=== PATIENT | female | born 1960 | race Two or more races ===

== ENCOUNTER 2018-02-13 09:29 | Outpatient (CLI) | payer OTHER | END 2018-02-13 09:36 | disposition home or self-care (01) | LOC: LAB 09:29 | DX: D50.0 Iron deficiency anemia secondary to blood loss (chronic) (principal); I10 Essential (primary) hypertension; E87.8 Other disorders of electrolyte and fluid balance, not elsewhere classified; Z12.11 Encounter for screening for malignant neoplasm of colon; K62.5 Hemorrhage of anus and rectum; E78.2 Mixed hyperlipidemia; E03.8 Other specified hypothyroidism; N39.0 Urinary tract infection, site not specified; E55.9 Vitamin D deficiency, unspecified; M81.0 Age-related osteoporosis without current pathological fracture; R10.84 Generalized abdominal pain ==

== ENCOUNTER → 2018-02-25 | Outpatient (CLI) | payer OTHER | END | disposition home or self-care (01) | LOC: LAB 09:09 | DX: D50.0 Iron deficiency anemia secondary to blood loss (chronic) (principal); I10 Essential (primary) hypertension; E87.8 Other disorders of electrolyte and fluid balance, not elsewhere classified; Z12.11 Encounter for screening for malignant neoplasm of colon; K62.5 Hemorrhage of anus and rectum; E78.2 Mixed hyperlipidemia; E03.8 Other specified hypothyroidism; N39.0 Urinary tract infection, site not specified; E55.9 Vitamin D deficiency, unspecified; M81.0 Age-related osteoporosis without current pathological fracture; R10.84 Generalized abdominal pain ==

== ENCOUNTER → 2018-03-07 | Outpatient (CLI) | payer OTHER | END | disposition home or self-care (01) | LOC: MRI 11:14 | DX: M23.303 Other meniscus derangements, unspecified medial meniscus, right knee (principal); M15.0 Primary generalized (osteo)arthritis | CPT/HCPCS: 73721 ==

== ENCOUNTER 2018-03-18 09:43 | Outpatient (CLI) | payer OTHER | END 2018-03-18 09:52 | disposition home or self-care (01) | LOC: NUCLEAR 09:43 | DX: M81.0 Age-related osteoporosis without current pathological fracture (principal) ==

== ENCOUNTER 2018-09-04 08:25 | Outpatient (CLI) | payer OTHER | END 2018-09-04 09:03 | disposition home or self-care (01) | LOC: LAB 08:25 | DX: E03.8 Other specified hypothyroidism (principal); N95.8 Other specified menopausal and perimenopausal disorders; R97.8 Other abnormal tumor markers; N30.00 Acute cystitis without hematuria; D50.0 Iron deficiency anemia secondary to blood loss (chronic); E11.65 Type 2 diabetes mellitus with hyperglycemia; Z12.11 Encounter for screening for malignant neoplasm of colon; K62.5 Hemorrhage of anus and rectum; R10.84 Generalized abdominal pain; E78.2 Mixed hyperlipidemia; E03.0 Congenital hypothyroidism with diffuse goiter; E55.9 Vitamin D deficiency, unspecified; M81.0 Age-related osteoporosis without current pathological fracture; E11.29 Type 2 diabetes mellitus with other diabetic kidney complication ==

== ENCOUNTER 2018-10-10 07:47 | Outpatient (CLI) | payer OTHER | END 2018-10-10 07:50 | disposition home or self-care (01) | LOC: LAB 07:47 | DX: N13.0 Hydronephrosis with ureteropelvic junction obstruction (principal); M05.9 Rheumatoid arthritis with rheumatoid factor, unspecified ==

== ENCOUNTER 2018-12-02 15:58 | Inpatient (IN) | payer OTHER ==
[~2018-12-02] VITALS: Ht 152.4 cm; Wt 83.9 kg
[2018-12-24] MEDS ORDERED: VASOTEC20 M1 PO (11:37)
[2018-12-24] MEDS ORDERED: ASPIR 8181 MG PO (11:38)
[2018-12-24] MEDS ORDERED: NORVASC2.5 M1 PO (11:38)
[2018-12-24] MEDS ORDERED: PROTONIX40 M1 PO (11:38)
[2018-12-24] MEDS ORDERED: FISH OIL CONC1000 MG PO (11:38)
[2018-12-24] MEDS ORDERED: VITAMIN D310000 UNIT PO (11:39)
== END 2019-01-01 20:47 | DRG 470 ==
LOC: SURH 12-30 05:40 → O/R 12-30 05:40 → SURH 12-30 07:00
PROVIDERS: ADMIT Orthopaedic Surgery
PROC: 0SRD0J9 Replacement of Left Knee Joint with Synthetic Substitute, Cemented, Open Approach (ICD-10-PCS; principal; 2018-12-30 07:00)
DX: M17.12 Unilateral primary osteoarthritis, left knee (principal); D62 Acute posthemorrhagic anemia; I10 Essential (primary) hypertension

== ENCOUNTER → 2018-12-16 | Outpatient (CLI) | payer OTHER ==
[~2018-12-16] MED LIST: ASPIR 8181 MG PO; FISH OIL CONC1000 MG PO; NORVASC2.5 M1 PO; PROTONIX40 M1 PO; VASOTEC20 M1 PO; VITAMIN D310000 UNIT PO
== END | disposition home or self-care (01) ==
LOC: RAD 501 10:29
DX: M17.11 Unilateral primary osteoarthritis, right knee (principal)

== ENCOUNTER 2019-03-18 08:24 | Outpatient (CLI) | payer OTHER | END 2019-03-18 08:33 | disposition home or self-care (01) | LOC: LAB 08:24 | DX: E78.49 Other hyperlipidemia (principal) ==

== ENCOUNTER 2019-03-18 09:13 | Outpatient (CLI) | payer OTHER | END 2019-03-18 09:16 | disposition home or self-care (01) | LOC: RAD 09:13 | DX: M25.561 Pain in right knee (principal); M25.562 Pain in left knee ==

== ENCOUNTER 2019-07-13 07:22 | Outpatient (CLI) | payer OTHER | END 2019-07-13 07:28 | disposition home or self-care (01) | LOC: LAB 07:22 | DX: I10 Essential (primary) hypertension (principal); E78.49 Other hyperlipidemia ==

== ENCOUNTER → 2019-07-13 | Outpatient (CLI) | payer OTHER | END | disposition home or self-care (01) | LOC: RAD 07:46 | DX: M15.0 Primary generalized (osteo)arthritis (principal) ==

== ENCOUNTER 2019-10-08 10:15 | Emergency (ER) | payer OTHER ==
[~2019-10-08] VITALS: Ht 154.9 cm; Wt 79.4 kg
== END 2019-10-08 11:32 | disposition home or self-care (01) ==
LOC: ER 10:15
DX: M54.5 Low back pain (principal)

== ENCOUNTER 2019-12-04 08:10 | Outpatient (CLI) | payer OTHER | END 2019-12-04 08:19 | disposition home or self-care (01) | LOC: LAB 08:10 | DX: E78.49 Other hyperlipidemia (principal); R73.09 Other abnormal glucose; Z12.89 Encounter for screening for malignant neoplasm of other sites; I10 Essential (primary) hypertension ==

== ENCOUNTER 2019-12-04 08:43 | Outpatient (CLI) | payer OTHER | END 2019-12-04 08:48 | disposition home or self-care (01) | LOC: SONOGRAMA 08:43 → MAMO-SONO 10:15 | DX: R10.2 Pelvic and perineal pain (principal); Z12.31 Encounter for screening mammogram for malignant neoplasm of breast ==

== ENCOUNTER 2019-12-10 09:55 | Outpatient (CLI) | payer OTHER | END 2019-12-10 10:04 | disposition home or self-care (01) | LOC: NUCLEAR 09:55 | DX: M81.0 Age-related osteoporosis without current pathological fracture (principal) ==

== ENCOUNTER 2019-12-29 14:12 | Outpatient (CLI) | payer OTHER | END 2019-12-29 14:22 | disposition home or self-care (01) | LOC: RAD 14:12 | DX: M25.561 Pain in right knee (principal); M25.562 Pain in left knee ==

== ENCOUNTER 2020-01-21 14:06 | Outpatient (CLI) | payer OTHER | END 2020-01-21 14:11 | disposition home or self-care (01) | LOC: MRI 14:06 | DX: M51.17 Intervertebral disc disorders with radiculopathy, lumbosacral region (principal) | CPT/HCPCS: 72148 ==

== ENCOUNTER 2020-03-23 08:11 | Outpatient (CLI) | payer OTHER | END 2020-03-23 08:20 | disposition home or self-care (01) | LOC: LAB 08:11 | DX: R73.09 Other abnormal glucose (principal) ==

== ENCOUNTER 2020-05-18 08:22 | Outpatient (CLI) | payer OTHER | END 2020-05-18 08:32 | disposition home or self-care (01) | LOC: LAB 08:22 | PROVIDERS: ATTEND Dermatology | DX: E03.8 Other specified hypothyroidism (principal); D64.89 Other specified anemias; R74.0 Nonspecific elevation of levels of transaminase and lactic acid dehydrogenase [LDH] ==

== ENCOUNTER 2020-05-31 09:00 | Outpatient (CLI) | payer OTHER | END 2020-05-31 09:13 | disposition home or self-care (01) | LOC: SONOGRAMA 09:00 → MAMO-SONO 09:15 | PROVIDERS: ATTEND Dermatology | DX: K76.0 Fatty (change of) liver, not elsewhere classified (principal); E03.8 Other specified hypothyroidism; E04.2 Nontoxic multinodular goiter ==

== ENCOUNTER → 2020-06-02 06:54 | Outpatient (CLI) | payer OTHER | END | disposition home or self-care (01) | LOC: LAB 06:54 | PROVIDERS: ATTEND Dermatology | DX: K76.89 Other specified diseases of liver (principal); B19.9 Unspecified viral hepatitis without hepatic coma; Z11.59 Encounter for screening for other viral diseases; I11.9 Hypertensive heart disease without heart failure; R73.01 Impaired fasting glucose; E78.49 Other hyperlipidemia; E21.0 Primary hyperparathyroidism; K62.5 Hemorrhage of anus and rectum; B34.8 Other viral infections of unspecified site ==

== ENCOUNTER 2020-08-29 07:57 | Outpatient (CLI) | payer OTHER | END 2020-08-29 08:01 | disposition home or self-care (01) | LOC: LAB 07:57 | PROVIDERS: ATTEND Family Medicine Adult Medicine | DX: K76.89 Other specified diseases of liver (principal); E78.49 Other hyperlipidemia; R73.01 Impaired fasting glucose ==

== ENCOUNTER → 2020-11-25 08:53 | Outpatient (CLI) | payer OTHER | END | disposition home or self-care (01) | LOC: LAB 08:53 | PROVIDERS: ATTEND Internal Medicine Endocrinology, Diabetes & Metabolism | DX: E03.8 Other specified hypothyroidism (principal); E78.2 Mixed hyperlipidemia; E66.09 Other obesity due to excess calories; E88.81 Metabolic syndrome and other insulin resistance; M85.88 Other specified disorders of bone density and structure, other site ==

== ENCOUNTER 2021-02-23 08:11 | Outpatient (CLI) | payer OTHER | END 2021-02-23 08:20 | disposition home or self-care (01) | LOC: RAD 08:11 | PROVIDERS: ATTEND Orthopaedic Surgery | DX: M25.561 Pain in right knee (principal); M25.562 Pain in left knee ==

== ENCOUNTER 2023-03-06 17:46 | Emergency (ER) | payer OTHER ==
[~2023-03-06] VITALS: Ht 154.9 cm; Wt 77.1 kg
[2023-03-06] MEDS ORDERED: LEVOTHYROXINE50 MCG PO (18:06)
[2023-03-06] MEDS ORDERED: LOSARTAN POTASS50 MG PO (18:06)
[2023-03-06] MEDS ORDERED: PREDNISOLONE ACE5 M1 OP (18:07)
== END 2023-03-06 19:53 | disposition home or self-care (01) ==
LOC: ER 17:46
DX: H53.2 Diplopia (principal); R51.9 Headache, unspecified; Z88.8 Allergy status to other drugs, medicaments and biological substances

== ENCOUNTER 2023-07-18 12:26 | Outpatient (CLI) | payer OTHER ==
[~2023-07-18 12:26] MED LIST changes: +LEVOTHYROXINE50 MCG PO; +LOSARTAN POTASS50 MG PO; +PREDNISOLONE ACE5 M1 OP
== END 2023-07-18 12:30 | disposition home or self-care (01) ==
LOC: RAD 12:26
PROVIDERS: ATTEND Orthopaedic Surgery
DX: M25.561 Pain in right knee (principal); M25.562 Pain in left knee

== ENCOUNTER 2023-09-16 12:08 | Outpatient (CLI) | payer OTHER | END 2023-09-16 12:13 | disposition home or self-care (01) | LOC: RAD 12:08 | PROVIDERS: ATTEND Orthopaedic Surgery | DX: M25.551 Pain in right hip (principal); M54.50 Low back pain, unspecified; R07.9 Chest pain, unspecified; Z88.8 Allergy status to other drugs, medicaments and biological substances ==

== ENCOUNTER 2023-12-12 10:17 | Outpatient (CLI) | payer OTHER | END 2023-12-12 10:28 | disposition home or self-care (01) | LOC: MAMO-SONO 10:17 | DX: M54.2 Cervicalgia (principal); N64.4 Mastodynia; Z12.31 Encounter for screening mammogram for malignant neoplasm of breast ==

== ENCOUNTER 2023-12-18 13:29 | Emergency (ER) | payer OTHER ==
[~2023-12-18] VITALS: Ht 154.9 cm; Wt 81.6 kg
[2023-12-18] MEDS ORDERED: SYNTHROID75 MCG (13:35)
[2023-12-18] MEDS ORDERED: COZAAR50 MG (13:36)
[2023-12-18] MEDS ORDERED: SIMVASTATIN5 MG (13:36)
[2023-12-18] MEDS ORDERED: DICLOFENAC SODI75 MG PO (15:13)
== END 2023-12-18 15:21 | disposition home or self-care (01) ==
LOC: ER 13:29
DX: S39.82XA Other specified injuries of lower back, initial encounter (principal); W18.39XA Other fall on same level, initial encounter; Y93.89 Activity, other specified; Y92.481 Parking lot as the place of occurrence of the external cause; S89.82XA Other specified injuries of left lower leg, initial encounter; S89.81XA Other specified injuries of right lower leg, initial encounter; Z88.8 Allergy status to other drugs, medicaments and biological substances; M17.0 Bilateral primary osteoarthritis of knee; M51.36 Other intervertebral disc degeneration, lumbar region
CPT/HCPCS: 72100; 73560; 96372; 99283; J1885

== ENCOUNTER 2023-12-25 13:05 | Outpatient (CLI) | payer OTHER | END 2023-12-25 13:07 | disposition home or self-care (01) | LOC: NUCLEAR 13:05 | PROVIDERS: ATTEND General Practice | DX: Z13.820 Encounter for screening for osteoporosis (principal); M81.0 Age-related osteoporosis without current pathological fracture ==

== ENCOUNTER → 2023-12-25 | Outpatient (CLI) | payer OTHER ==
[~2023-12-25] MED LIST changes: +COZAAR50 MG; +DICLOFENAC SODI75 MG PO; +SIMVASTATIN5 MG; +SYNTHROID75 MCG
== END | disposition home or self-care (01) ==
LOC: RAD 13:29
PROVIDERS: ATTEND Orthopaedic Surgery
DX: M25.561 Pain in right knee (principal); M25.562 Pain in left knee; M25.551 Pain in right hip; M25.552 Pain in left hip

== ENCOUNTER 2024-07-07 10:01 | Outpatient (CLI) | payer OTHER | END 2024-07-07 10:12 | disposition home or self-care (01) | LOC: RAD 10:01 | PROVIDERS: ATTEND Orthopaedic Surgery | DX: R06.02 Shortness of breath (principal); M72.2 Plantar fascial fibromatosis ==

== ENCOUNTER 2024-09-07 14:29 | Outpatient (CLI) | payer OTHER | END 2024-09-07 14:32 | disposition home or self-care (01) | LOC: RAD 14:29 | PROVIDERS: ATTEND General Practice | DX: M46.1 Sacroiliitis, not elsewhere classified (principal); M54.50 Low back pain, unspecified; M25.571 Pain in right ankle and joints of right foot ==

== ENCOUNTER 2024-12-17 08:58 | Outpatient (CLI) | payer OTHER | END 2024-12-17 09:05 | disposition home or self-care (01) | LOC: RAD 08:58 | PROVIDERS: ATTEND Orthopaedic Surgery | DX: M25.561 Pain in right knee (principal); M25.562 Pain in left knee ==

== ENCOUNTER 2025-02-04 08:08 | Outpatient (CLI) | payer OTHER | END 2025-02-04 08:18 | disposition home or self-care (01) | LOC: SONOGRAMA 08:08 | PROVIDERS: ATTEND General Practice | DX: E04.1 Nontoxic single thyroid nodule (principal); R13.10 Dysphagia, unspecified ==

== ENCOUNTER 2025-04-07 08:29 | Outpatient (CLI) | payer OTHER | END 2025-04-07 08:36 | disposition home or self-care (01) | LOC: MAMO-SONO 08:29 | PROVIDERS: ATTEND General Practice | DX: N64.4 Mastodynia (principal); Z12.31 Encounter for screening mammogram for malignant neoplasm of breast ==

== ENCOUNTER 2025-09-23 08:55 | Outpatient (CLI) | payer OTHER ==
[2025-09-24] MEDS ORDERED: NORFLEX100MG PO (20:56)
[2025-09-24] MEDS ORDERED: IBU600 MG PO (20:56)
== END 2025-09-23 09:02 | disposition home or self-care (01) ==
LOC: TOM 08:55
PROVIDERS: ATTEND Internal Medicine Pulmonary Disease
DX: J98.4 Other disorders of lung (principal); G47.33 Obstructive sleep apnea (adult) (pediatric)

== ENCOUNTER 2025-09-24 16:14 | Emergency (ER) | payer OTHER ==
[~2025-09-24] VITALS: Ht 154.9 cm; Wt 74.8 kg
[2025-09-24] MEDS ORDERED: ACETAMINOPHEN 500 MG GEL..CAP PO ONE ×2 (18:45→20:20)
[2025-09-24] MEDS ORDERED: KETOROLAC TROMETHAMINE 60 MG VIAL IM ONE ×2 (18:45→20:20)
[2025-09-24] MEDS ORDERED: ORPHENADRINE CITRATE 30 MG/ML AMPUL IM ONE (18:45)
[2025-09-24] MEDS ORDERED: ORPHENADRINE CITRATE 30 MG/ML AMPUL ONE (20:19)
[2025-09-24] MEDS ORDERED: IBU600 MG PO (20:56)
[2025-09-24] MEDS ORDERED: NORFLEX100MG PO (20:56)
== END 2025-09-24 22:28 | disposition home or self-care (01) ==
LOC: ER 16:14
DX: M12.569 Traumatic arthropathy, unspecified knee (principal); I10 Essential (primary) hypertension; E11.9 Type 2 diabetes mellitus without complications; Z88.0 Allergy status to penicillin
CPT/HCPCS: 73565; 96372; 99283; J1885; J2360